=== PATIENT | male | born 1960 | race African-American/Black ===

== ENCOUNTER 2024-07-02 04:50 | Emergency (ER) | payer MEDICAID ==
[~2024-07-02] VITALS: Ht 177.8 cm; Wt 85.0 kg
[2024-07-02 04:54] VITALS: TEMP 98.7; O2SAT 100
[2024-07-02] MEDS ORDERED: CEFP200T13 MT (07:00)
[2024-07-02 07:14] VITALS: BP 132/70; PULSE 89; RESP 14; O2SAT 100
== END 2024-07-02 07:14 | disposition home or self-care (01) ==
LOC: ER 04:50
DX: R33.9 Retention of urine, unspecified (principal); Z86.73 Personal history of transient ischemic attack (TIA), and cerebral infarction without residual deficits
CPT/HCPCS: 51702; 99284

== ENCOUNTER 2024-09-07 23:11 | Emergency (ER) | payer MEDICAID ==
[~2024-09-07] VITALS: Ht 172.7 cm; Wt 82.0 kg
[~2024-09-07 23:11] MED LIST: CEFP200T13 MT
[2024-09-07 23:13] VITALS: O2SAT 100
[2024-09-08] MEDS ORDERED: ACET-2708 MT (00:15)
[2024-09-08 00:20] VITALS: BP 161/98; PULSE 84; RESP 16; TEMP 36.8; O2SAT 97
== END 2024-09-08 01:36 | disposition home or self-care (01) ==
LOC: ER 23:11
DX: T83.010A Breakdown (mechanical) of cystostomy catheter, initial encounter (principal); Y92.89 Other specified places as the place of occurrence of the external cause; Z86.73 Personal history of transient ischemic attack (TIA), and cerebral infarction without residual deficits
CPT/HCPCS: 51702; 99284